=== PATIENT | female | born 1940 | race Caucasian/White ===

== ENCOUNTER → 2020-08-09 13:31 | Outpatient (CLI) | payer MEDICARE, SELFPAY ==
--- NOTE | ~2020-08-09 | XR_ITS ---
EXAMINATION: XR hip LT 2V w AP pelvis INDICATION: Left hip pain TECHNIQUE: AP view the pelvis and two views of the left hip are obtained. COMPARISON: None available FINDINGS: Bone alignment is normal. There is no fracture. There is moderate to severe osteoarthritis of the left hip and mild osteoarthritis of the right. Phleboliths are noted in the pelvis. There is a t least moderate spondylosis of the visualized lower lumbar spine. IMPRESSION: 1. Moderate to severe osteoarthritis of the left hip. Reviewed, dictated and finalized at location A.
== END ==
PROVIDERS: Visit Provider Family Medicine
DX: M16.12 Unilateral primary osteoarthritis, left hip (principal)
CPT/HCPCS: 73502

== ENCOUNTER → 2021-05-29 08:40 | Outpatient (CLI) | payer MEDICARE, SELFPAY ==
--- NOTE | ~2021-05-29 | MR_ITS ---
EXAMINATION: MR knee LT wo con DATE: 05/29/2021 09:28 INDICATION: Left knee pain. TECHNIQUE: Magnetic resonance imaging (MRI) of the left knee was performed without intravenous contra st. Sequences included axial PD-weighted FS FSE, coronal PD-weighted FSE and PD-weighted FS FSE, sagi ttal PD-weighted FSE, and sagittal T2-weighted FS FSE. COMPARISON: None. FINDINGS: Medial compartment: There is an undersurface horizontal tear of body and posterior horn of medial meniscus. There is shal low partial-thickness cartilage loss of tibial condyle. There is a subchondral cyst involving the ant erior articular surface. There is deep partial thickness cartilage loss of femoral condyle involving the central articular surface. There are tiny osteophytes. Lateral compartment: There is an undersurface horizontal tear involving body and posterior horn of lateral meniscus. There is cartilage surface irregularity of tibial condyle and femoral condyle. There are tiny osteophytes. Patellofemoral compartment: There is deep partial thickness cartilage loss of the patellar median ridge with mild subchondral fam ma-like marrow signal intensity. There is shallow partial-thickness cartilage loss of patellar latera l facet. There is cartilage surface irregularity of trochlea. There are tiny osteophytes. Ligaments and tendons: The anterior and posterior cruciate ligaments are normal. There are changes of prior sprains of media l collateral ligament and fibular collateral ligament characterized by thickening and increased signa l intensity proximally. There is mild patellar tendinopathy. Fluid: There is a small knee joint effusion. There is trace fluid in a Felix's cyst. There is mild superfici al infrapatellar bursitis. IMPRESSION: 1. Moderate chondrosis of medial and patellofemoral compartments and mild chondrosis of lateral huber rtment. 2. Tears of medial and lateral menisci. 3. Small knee joint effusion. Reviewed, dictated and finalized at location A. AL ARCHITECT IMPRESSION: 1. Moderate chondrosis of medial and patellofemoral compartments and mild chond rosis of lateral compartment. 2. Tears of medial and lateral menisci. 3. Small knee joint effusion.
== END ==
PROVIDERS: Visit Provider Orthopaedic Surgery
DX: S83.282A Other tear of lateral meniscus, current injury, left knee, initial encounter (principal); S83.242A Other tear of medial meniscus, current injury, left knee, initial encounter; M25.462 Effusion, left knee
CPT/HCPCS: 73721